=== PATIENT | female | born 1985 | race African-American/Black ===

== ENCOUNTER 2017-11-29 20:27 | Emergency (ER) | payer OTHER ==
[~2017-11-29] VITALS: Ht 162.6 cm; Wt 56.7 kg
[2017-11-29 20:45] VITALS: BP 110/58
[2017-11-29] MEDS ORDERED: CEPHALEXIN500 MG ORAL (20:59)
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
[2017-11-29 21:13] VITALS: BP 110/58
== END 2017-11-29 21:13 | disposition home or self-care (01) ==
LOC: EMR 20:47
DX: S40.212A Abrasion of left shoulder, initial encounter (principal); W50.3XXA Accidental bite by another person, initial encounter; Y92.9 Unspecified place or not applicable; Y99.0 Civilian activity done for income or pay; Z88.0 Allergy status to penicillin
CPT/HCPCS: 99283